=== PATIENT | male | born 1955 | race Asian ===

== ENCOUNTER → 2020-04-09 08:56 | Outpatient (CLI) | payer MEDICARE, SELFPAY ==
[2020-04-10 00:23] LABS: COVID19 Sendout Not Detected (Not Detect)
== END ==
PROVIDERS: Visit Provider Nurse Practitioner
DX: Z01.812 Encounter for preprocedural laboratory examination (principal)
CPT/HCPCS: 87635

== ENCOUNTER → 2020-12-23 13:08 | Outpatient (CLI) | payer MEDICARE, SELFPAY ==
[2020-12-23 16:32] LABS: COVID19 -Nasal RAPID Negative (Negative)
== END ==
PROVIDERS: PCP Family Medicine; Visit Provider Physician Assistant
DX: Z01.812 Encounter for preprocedural laboratory examination (principal); Z20.822 Contact with and (suspected) exposure to COVID-19
CPT/HCPCS: 87635; C9803

== ENCOUNTER 2020-12-24 11:56 | Day surgery (SDC) | payer MEDICARE, SELFPAY ==
[2020-12-24 12:39] VITALS: BP 151/79; PULSE 66; RESP 17; TEMP 36.5; O2SAT 98; BMI 26.7
[2020-12-24] MEDS: PROPARACAINE 0.5% OPHTH SOL 2 DROPS EYE-OP (12:45)
[2020-12-24] MEDS: CATARACT EYE COMPOUND (10 DROPS/SYRINGE) 3 DROPS EYE-OP (12:45)
--- NOTE | 2020-12-24 13:28 | PM.PREOP ---
Pre-operative Note Interval Note History & Physical reviewed/Exam performed by Physician: Yes Changes to H&P: No
--- NOTE | 2020-12-24 13:28 | PM.OP.1 ---
Operative Date/Time/Diagnoses Pre-op diagnosis: Nuclear cataract right eye Procedure & Clinicians Procedure: Cataract Surgery Same procedure as scheduled: Yes Surgeon: Zen Thomas Anesthesia Type: MAC +/- and Sedation Operative Notes Procedure in detail: Patient brought to the operating suite. Tetracaine drops placed in the right eye. Patient was prepped and draped in sterile manner. Wire lid speculum was placed in the eye. Betadine drops were placed on the eye. This was irrigated. Lidocaine jelly was placed on the eye. A paracentesis port was created with a side-port blade. 0.1 mL 1% preservative free lidocaine was injected into the anterior chamber. The anterior chamber was deepened with viscoelastic. 2.6 mm keratome was used to create a temporal clear corneal incision. Cystotome and Utrata forceps were used to create continuous tear capsulorrhexis. Balanced salt solution was used to hydro dissect the nucleus. The phacoemulsification handpiece was inserted and the nucleus was removed using the stop and chop technique. The nucleus was very dense. A tear was noted in the posterior capsule. The irrigation aspiration handpiece was inserted and the remaining cortex was removed. Vitreous was swept back from the incision. Anterior chamber was deepened with viscoelastic. The incision was enlarged with a keratome. An Garnica [id number] intraocular lens with a power of 23.0 was injected into the sulcus. Irrigation aspiration handpiece was inserted and the remaining viscoelastic was removed. 0.1 mL Miostat was injected into the anterior chamber and the iris constricted over the lens Incision was hydrated with balanced salt solution and found to be leak free with pressure with Weck-Ashley sponges. There was no vitreous at the incision. 0.1 mL Vigamox injected anterior chamber. 0.3 mL Kenalog 10 mg was injected subconjunctivally. Lid speculum was removed. The patient left the operating room in excellent condition. Complications: none Post-operative Condition: stable Disposition: same day surgery
[2020-12-24] MEDS: TRIAMCINOLONE 50 MG/5 ML VIAL INJ (13:44)
[2020-12-24] MEDS: LIDOCAINE JELLY 2% 5 ML 1 APPLIC TOP (13:44)
[2020-12-24] MEDS: MOXIFLOXACIN INJ 5 MG/ML VIAL EYE-OP (13:45)
[2020-12-24] MEDS: BALANCED SALT IRRIG SOLN NO.2 500 ML, EPINEPHrine 1 MG IRR (13:45)
[2020-12-24] MEDS: PHENYLEPHRINE/LIDOCAINE VIAL (OR) 0.2 ML EYE-OP (13:45)
[2020-12-24] MEDS: CHONDROIDTIN/SOD HYALURONATE 1.05 ML SYRINGE INTRAOCULA (13:46)
[2020-12-24] MEDS: TETRACAINE 0.5% OPHTH DROPS 4 ML 2 DROPS EYE-OP (13:46)
[2020-12-24] MEDS: CARBACHOL 1.5 ML VIAL INJ (14:02)
[2020-12-24 14:15] VITALS: BP 142/74; PULSE 55; RESP 16; TEMP 36.6; O2SAT 98
--- NOTE | 2020-12-24 14:26 | SUR.PHASEII ---
Pt wanting to go home and getting ready and dressed while laying in bed resting. Up and ambulating pt states he feels drunk, advised pt to get in bed and rest for a bit but pt wanting to go home and states he feels fine. Pt dcd with all instructions and supplies via [place] to curbside where son is waiting in car
== END 2020-12-24 14:29 | disposition home or self-care (01) ==
LOC: OR 11:58
PROVIDERS: PCP Family Medicine; Referring Provider Ophthalmology; Visit Provider Ophthalmology
PROC: (CPT 66984; principal; 2020-12-24 13:45)
DX: H25.12 Age-related nuclear cataract, left eye (principal); I10 Essential (primary) hypertension; C61 Malignant neoplasm of prostate; E03.9 Hypothyroidism, unspecified; E78.5 Hyperlipidemia, unspecified
CPT/HCPCS: 66984; J0171; J2250; J3010; J3301